=== PATIENT | male | born 1995 ===

== ENCOUNTER 2016-12-04 21:25 | Emergency (ER) | payer OTHER ==
--- NOTE | 2016-12-04 22:06 | EDPHY ---
HPI/HX/ROS/PE/MDM Narrative: CHIEF COMPLAINT: "I'm having suicidal thoughts and not sleeping well;" "I would really like some rest" HPI: The patient is a 21 y/o male arriving with his professor voluntarily for psychiatric evaluation. He reports he has only slept 10 hours in the last week and is having suicidal thoughts. He denies a specific plan to harm himself or any recent attempts to hurt himself. He denies recent illicit drugs or alcohol use. His professor at bedside says the patient has expressed paranoid thoughts. She reports he thinks his neighbors are tracking his movements and people are listening to his conversations. Due to this, he has been turning off his cellphone, leaving the shower running to obscure sounds, and whispering and using hand signals to communicate. He is cooperative on assessment and primarily wants help sleeping. REVIEW OF SYSTEMS: Aside from elements discussed in the HPI, a comprehensive 10-point review of systems was reviewed and is negative. 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 PHYSICAL EXAM: General:Patient is alert, in no acute distress. ENT:Eyes are normal to inspection. ENT inspection normal. Neck: Normal inspection. Full range of motion. Respiratory:No respiratory distress. Breath sounds normal bilaterally. Cardiovascular: Regular rate and rhythm. Strong peripheral pulses. Normal cap refill. Abdomen:The abdomen is nontender to palpation. There are no peritoneal signs. Back: Normal to inspection. No tenderness to palpation. Skin: Normal color. No rash. Warm and dry. Extremities: Normal appearance. Full range of motion. Neuro: Oriented x3. Normal motor function. Normal sensory function. Psychiatric: Pleasant affect (Rickie Fajardo) ED Course: Plan for standard psychiatric clearance labs then mental health evaluation. ( Rickie Fajardo) MDM: 1:50 a.m. the patient has been evaluated by Mental Health. They will begin looking for inpatient placement for psychosis. 6:30 a.m. Patient has been accepted to [facility] by Dr. Sanches. We will complete transfer paperwork. (Isac Barger) - Data Points Laboratory Results: Laboratory Results 12/04/16 22:35 12/04/16 22:35 Medications Given: Discontinued Medications Lorazepam (Ativan) 1 mg PO EDNOW ONE Stop: 12/05/16 01:11 Last Admin: 12/05/16 01:15 Dose: 1 mg General Time Seen by Provider: 12/04/16 21:49 Initial Vital Signs: Initial Vital Signs Temperature (C) 36.8 C 12/04/16 21:32 Heart Rate 100 12/04/16 21:32 Respiratory Rate 16 12/04/16 21:32 Blood Pressure 147/93 H 12/04/16 21:32 O2 Sat (%) 96 12/04/16 21:32 O2 Delivery Mode Room Air Allergies/Adverse Reactions: No Known Allergies Allergy (Unverified 12/04/16 21:32) Home Medications: Medication Instructions Recorded NK [No Known Home Meds] 12/04/16 Departure - Departure Disposition: Other Psych, Not [facility] Clinical Impression: Paranoia, Acute psychosis, Suicidal ideation Condition: Fair Referrals: NONE *PRIMARY CARE P,. [Primary Care Provider] - As per Instructions Report Scribed for: Rickie Fajardo Report Scribed by: Nisha Javier Date of Report: 12/04/16 Time of Report: 22:06 Physician Review and Approval Statement: Portions of this note were transcribed by an ED scribe. I personally performed the history, physical exam, and medical decision making; and confirm the accuracy of the information in the transcribed note.
[2016-12-04 22:56] LABS: % IMMATURE GRANULYOCYTES 0.3 % (0.0-1.1); ABSOLUTE IMMATURE GRANULOCYTES 0.03 10^3/uL (0.00-0.10); ADD DIFF? NO; ADD MORPH? NO; ADD SCAN? NO; ATYPICAL LYMPHOCYTE FLAG 20 (0-99); FRAGMENT RBC FLAG 0 (0-99); HEMATOCRIT 45.9 % (40.0-51.0); HEMOGLOBIN 16.4 g/dL (13.7-17.5); LEFT SHIFT FLG 0 (0-99); LIPEMIA HEMOLYSIS FLAG 90 (0-99); MEAN CELL HEMOGLOBIN 31.3 pg (27.9-34.1); MEAN CELL HEMOGLOBIN CONCENTR. 35.7 g/dL (32.4-36.7); MEAN CELL VOLUME 87.6 fL (81.5-99.8); MEAN PLATELET VOLUME 9.5 fL (8.7-11.7); PLATELET CLUMPS FLAG 0 (0-99); PLATELET COUNT 256 10^3/uL (150-400); RED BLOOD CELL COUNT 5.24 10^6/uL (4.40-6.38); RED CELL DISTRIBUTION WIDTH 12.3 % (11.5-15.2)
[2016-12-04 23:12] LABS: ANION GAP 12 mEq/L (8-16); CALCIUM 10.3 mg/dL (8.5-10.4); CARBON DIOXIDE 24 mEq/l (22-31); CHLORIDE 103 mEq/L (97-110); CREATININE 0.7 mg/dL (0.7-1.3); ETHANOL SERUM < 10 mg/dL (0-10); GLOMERULAR FILTRATION RATE > 60; GLUCOSE 110 mg/dL (70-100); POTASSIUM 3.9 mEq/L (3.5-5.2); SODIUM 139 mEq/L (134-144)
[2016-12-05] MEDS ORDERED: LORazepam 1 MG TAB ONE (01:03)
[2016-12-05] MEDS ORDERED: LORazepam 1 MG TAB PO ONE (01:10)
[2016-12-05 01:50] VITALS: PULSE 78; O2SAT 96
[2016-12-05 07:22] VITALS: BP 101/79; RESP 16; TEMP 97.2
== END 2016-12-05 08:41 ==
DX: R45.851 Suicidal ideations (principal); F29 Unspecified psychosis not due to a substance or known physiological condition; F60.0 Paranoid personality disorder; J45.909 Unspecified asthma, uncomplicated
CPT/HCPCS: 80305; G0480